=== PATIENT | female | born 1955 | race Hispanic/Latino ===

== ENCOUNTER 2023-07-17 06:32 | Emergency (ER) | payer OTHER ==
[~2023-07-17] VITALS: Ht 139.7 cm; Wt 69.9 kg
[2023-07-17] MEDS ORDERED: DICL75TA5 PO (06:49)
[2023-07-17] MEDS ORDERED: BACL20TA PO (06:50)
[2023-07-17] MEDS ORDERED: [UNRECOGNIZED DRUG - CODE] PO (06:52)
[2023-07-17] MEDS ORDERED: 0.9%NACL 1000ML 1,000 ML IV SCH (07:30)
[2023-07-17] MEDS ORDERED: MORPHINE 4 MG SYG IVP ONE (07:30)
[2023-07-17] MEDS ORDERED: ONDANSETRON 4MG INJ IVP ONE (07:30)
[2023-07-17 07:33] LABS: HEMATOCRIT 35.3 % (36-48); MEAN CORPUSCULAR HEMOGLOBIN 30.4 pg (27.0-33.0); MEAN CORPUSCULAR HGB CONC 32.9 g/dL (32.0-36.0); MEAN CORPUSCULAR VOLUME 92.7 fL (79-99); RED BLOOD CELL COUNT(AUTO) 3.81 MIL/uL (4.00-5.50); RED CELL DISTRIBUTION WIDTH 13.2 % (11.0-15.5); WHITE BLOOD COUNT (AUTO) 9.7 K/uL (4.8-10.8)
[2023-07-17 07:44] LABS: CREATININE 0.9 mg/dL (0.5-1.5); POTASSIUM 5.3 mmol/L (3.5-5.1)
[2023-07-17] MEDS ORDERED: DEXTROSE 50%-WATER 25 GM/50 ML VIAL IV ONE (08:00)
[2023-07-17] MEDS ORDERED: INSULIN HUMULIN R 100 UNIT/ML 3ML IV ONE (08:00)
[2023-07-17] MEDS ORDERED: DEXTROSE 50%-WATER 50 ML DISP.SYRIN IV ONE (08:30)
[2023-07-17] MEDS ORDERED: IBUP-2070 PO (08:43)
[2023-07-17 09:10] VITALS: BP 151/50; PULSE 82; RESP 16; O2SAT 100
== END 2023-07-17 09:10 | disposition home or self-care (01) ==
LOC: EDH 06:32
DX: M51.16 Intervertebral disc disorders with radiculopathy, lumbar region (principal); M47.26 Other spondylosis with radiculopathy, lumbar region; I10 Essential (primary) hypertension; E11.9 Type 2 diabetes mellitus without complications; E78.00 Pure hypercholesterolemia, unspecified; Z79.899 Other long term (current) drug therapy; Z98.890 Other specified postprocedural states
CPT/HCPCS: 99285; 96374; 72131; 96375; 96361; 80048; 85027; 36415; J1815; J7030; J7070 ×2; J2405; J2270